=== PATIENT | female | born 1990 | race Caucasian/White ===

== ENCOUNTER 2022-10-09 10:16 | Outpatient (CLI) | payer BC, SELFPAY ==
--- NOTE | 2022-10-09 10:15 | RT.EKG_ITS ---
APPROVED REPORT Exam: Resting ECG Reason for Exam: chest discomfort Patient Location: O HR:68 bpm ECG Measurements Heart Rate 68 AXIS NV 134 P 72 QRSd 94 QRS 68 QT 379 T -13 QTc 404 Conclusion Sinus rhythm...normal P axis, V-rate 50- [address] abnormalities
== END 2022-10-09 10:17 | disposition home or self-care (01) ==
LOC: DI.CM 10:17
PROVIDERS: Visit Provider Nurse Practitioner Family
DX: R07.89 Other chest pain (principal)
CPT/HCPCS: 93010

== ENCOUNTER 2022-10-09 10:47 | Emergency (ER) | payer BC, SELFPAY ==
[2022-10-09] VITALS (12 sets, daily range): BP systolic 118–125; BP diastolic 80–96; PULSE 64–82; RESP 12–27; TEMP 36.3; O2SAT 96–100
--- NOTE | 2022-10-09 10:45 | RT.EKG_ITS ---
APPROVED REPORT Exam: Resting ECG Reason for Exam: chest pain Patient Location: E HR:73 bpm ECG Measurements Heart Rate 73 AXIS NH 146 P 69 QRSd 88 QRS 68 QT 371 T 1 QTc 410 Conclusion Sinus rhythm...normal P axis, V-rate 60- [address] dep laterally, V4-6
--- NOTE | 2022-10-09 11:23 | ED.GENADUL_ITS ---
Discharge Plan Disposition Patient Disposition: Home Condition: Stable Discharge Details Clinical Impression: Influenza A, Chest pain Primary Care Provider: None,None ED Provider: Lauren Hicks Home Meds and New Rx's Prescriptions: Continued Women's Daily Multivitamin 1 EACH tablet 1 ea PO DAILY cyanocobalamin (vitamin B-12) 2,500 MCG tablet 1,000 mcg PO DAILY Discharge Instructions Instructions: Chest Pain (ED), H1N1 Influenza (ED) Additional Instructions: Your imaging and labs are reassuring here today. Symptoms are likely due to your known fluid diagnosis. This can cause inflammation such as pleuritis like we discussed which can cause pain in your chest particularly when you are coughing or taking deep breaths. Please continue to encourage deep breathing. Please take the Tamiflu as prescribed. You may use Tylenol and/or ibuprofen as needed for discomfort or fevers. If you develop shortness of breath, difficulty breathing, increased pain or other new/worsening symptom please seek care urgently once again. Otherwise, please follow-up with primary care in 2 weeks for reevaluation. Referrals: Segundo Augustine [[facility] REGISTERED NURSE] - Discharge Data Discharge Date/Time-TO BE ENTERED AT DEPARTURE: 10/09/22 14:37 Medical Decision Making Patient is a pleasant 31-year-old female presenting today, sent over from urgent care, with chief complaint of chest discomfort. States the pain was primarily pleuritic in nature although she does have some exertional component. She denies feeling short of breath. She has had cough, congestion, runny nose. Cough is been dry. She was diagnosed with influenza today at the urgent care and started on Tamiflu. No recent travel. She is not on any control or estrogen supplementations. Finished her menses about 2 days ago. Global ECG reviewed by Dr. Mahmood, subtle ST depressional laterally. No previous for comparison. On exam, patient appears anxious but otherwise nontoxic. Hemodynamically stable. Lungs are clear. Normal cardiac exam. No change with movement. HEENT is significant for mild erythema in the posterior oropharynx. No lymphadenopathy. Patient denies any abdominal pain, nausea, vomiting, diarrhea. Has been hydrating but reports decreased appetite. She does have family history of 2 women in her family having CABG but states that she believes this is when they were older. With the discomfort and ST depression, I do feel that troponin would be appropriate. This has been going on for few days, if this is within normal limits, I do not see need for repeat. Patient is PERC and Wells negative. Prior to drawing blood, patient began crying and became very upset. She has significant anxiety around blood draws and will first give oral Ativan. FINDINGS: Single AP portable view. Heart size is upper normal.? The mediastinum is not widened. Lungs are clear.? No infiltrates nor obvious pleural effusions. IMPRESSION: No acute pulmonary findings on this single AP portable view of the chest. Labs reviewed. WBC slightly low, consistent with viral illness as patient flu +. CMP WNL. Troponin WNL. Discussed with patient. Advised pain is likely pleuritic in nature. Encouraged hydration. Encouraged supportive care. Advised f/u with PCP in the next 1-2 weeks for reevaluation. Strict return precautions discussed. All of her questions and concerns were addressed, she is in agreement with this plan. Sign Out No HPI General Date/Time Provider Initiated Documentation: 10/09/22 11:23 . Limitations to Documentation: no limitations . Information obtained by: patient and RN notes reviewed . History of Present Illness 31 year old F presents to the emergency department with the chief complaint of flu symptoms, chest discomfort, described as moderate, Quality is described as aching, and is localized to the chest. Patient reports no radiation. Patient started experiencing this day(s) and it has been constant (flu symptoms constant, chest discomfort associated with coughing, deep breathing). Immobilization improves symptom(s), Movement worsens symptoms (coughing) . Patient notes chest pain, cough, fever/chills and malaise; denies nausea/vomiting, rash and shortness of breath. Patient did receive the following treatments prior to arrival, none Related Data Home Medications Medication Instructions Recorded Confirmed cyanocobalamin (vitamin B-12) 1,000 mcg PO DAILY 11/09/15 10/09/22 2,500 mcg tablet aykrrpukfkla-Eg-euia-minerals 18 1 ea PO DAILY 11/09/15 10/09/22 mg-0.4 mg tablet (Women's Daily Multivitamin) Allergies Allergy/AdvReac Type Severity Reaction Status Date / Time No Known Allergies Allergy Unverified 10/09/22 10:53 General Stated Complaint: GenMedical ELVIA: 3 Review of Systems Constitutional Constitutional: Reports as per HPI and Denies headache(s) ENT Ears, Nose, Mouth, and Throat: Denies dizziness and Denies headache(s) Cardiovascular Cardiovascular: Reports as per HPI, Denies dyspnea and Denies dyspnea on exertion Respiratory Respiratory: Reports as per HPI, Denies dyspnea and Denies dyspnea on exertion Gastrointestinal Gastrointestinal: Reports as per HPI, Denies abdominal pain, Denies diarrhea, Denies nausea and Denies vomiting Musculoskeletal Musculoskeletal: Reports as per HPI and Denies back pain Integumentary/Breasts Skin/Breast: Reports as per HPI and Denies rash Neurologic Neurologic: Reports as per HPI, Denies dizziness and Denies headache(s) PFSH All Active Problems (Updated 10/09/22 @ 13:37 by DEMOND Roberts) Influenza A (Acute) Chest pain (Acute) Family History Mother Heart disease Father Pancreatitis Social History Smoking/Tobacco Use Status: Never Smoking risk assessment performed?: Yes Alcohol Intake: current Alcohol Intake frequency: a few times a week Drug use: Socially Substance use type: marijuana Do you feel safe at home: Yes Do you feel safe in your relationship?: Yes Exam Const General: cooperative, healthy appearing, comfortable, no acute distress, well developed and anxious Nutritional Appearance: average body habitus and well nourished Orientation: alert, awake and oriented x3 HENMT Head: normal to inspection Ears: hearing grossly normal bilaterally, external ears normal, TM's normal bilaterally, mastoids normal and no periauricular adenopathy Face and sinus: normal facial exam, sinuses nontender and face symmetric Mouth: oral mucosae normal, tongue normal, moist mucous membranes and no trismus Throat: posterior oropharynx normal, tonsils normal and uvula midline Neck Neck: normal visual inspection and no lymphadenopathy Chest Chest: normal inspection of the chest, normal palpation of entire chest wall and no crepitus Resp Effort & Inspection: normal respiratory effort, able to speak in complete sentences and no respiratory distress Auscultation: clear to auscultation bilaterally, no rales, no rhonchi and no wheezes Cardio Rate: regular rate Rhythm: regular rhythm Heart Sounds: S1 normal and S2 normal GI Inspection: normal to inspection, no edema and non-distended Palpation: soft, no hepatosplenomegaly, not firm, no guarding, not rigid and nontender Auscultation: normal bowel sounds Back/Spine/Pelvis Back: no CVA tenderness Thoracic/Lumbar Spine: thoracic and lumbar spine normal to inspection Skin General skin exam: no rashes or lesions noted Trauma: no lacerations or abrasions Neuro General: patient alert, patient awake and patient oriented x3 Cognition: normal cognition Speech: speech normal Gait: normal gait Extrem General: normal to inspection, capillary refill normal, no pedal edema, no calf tenderness and normal gait Psych Appearance: grossly normal and well kempt Mental Status: mental status grossly normal Speech and Movement: speech and movement normal Course Vital Signs Vital signs: Vital Signs Temperature 36.3 C L 10/09/22 10:50 Pulse 82 10/09/22 10:50 Respiratory Rate 20 10/09/22 10:50 Blood Pressure 122/96 H 10/09/22 10:50 Pulse Oximetry 100 10/09/22 10:50 Temperature 36.3 C L 10/09/22 10:50 Temperature Source Temporal Artery Scan 10/09/22 10:50 Pulse 82 10/09/22 10:50 Respiratory Rate 20 10/09/22 10:50 Respiratory Effort 10/09/22 10:54 Blood Pressure 122/96 H 10/09/22 10:50 Blood Pressure Position Sitting 10/09/22 10:50 Pulse Oximetry 100 10/09/22 10:50 Oxygen Delivery Method Room Air 10/09/22 10:50 Oxygen Flow Rate 0 10/09/22 10:50 PAWSS Have you Been Recently Intoxicated or Drunk Within the Last 30 days?: Yes Have you Ever Experienced Previous Episodes of Alcohol Withdrawal?: No Have you ever Experienced Withdrawal Seizures?: No Have you ever Experienced Delirium Tremens(DT)s?: No Have you ever undergone Alcohol Rehabilitation Treatment (i.e, inpt ot outpatient treatment programs)?: No Have you ever Experienced Blackouts?: No Have you ever Combined Alcohol with other Downers within the last 90 days?: No Have you ever Combined Alcohol with any other Substance of Abuse during the last 90 days?: No Positive Blood Alcohol level on Presentation? [PCS.BAL]: No Evidence of Increased Autonomic Activity (i.e. HR>120, tremor, sweating, agitation, nausea)?: No Result: 1
[2022-10-09] MEDS: LORazepam 1 MG TAB (11:37)
[2022-10-09] MEDS: Lactated Ringers 1,000 ML 1000 ML IV (12:00)
[2022-10-09 12:20] LABS: Abs Immature Grans 0.01 10^3/uL (0.0-0.06); Absolute Basophil Count 0.02 10^3/uL (0.0-0.2); Absolute Eosinophil Count 0.02 10^3/uL (0.0-0.7); Absolute Lymphocyte Count 1.21 10^3/uL (1.2-3.4); Absolute Monocyte Count 0.43 10^3/uL (0.1-0.8); Absolute Neutrophil Count 2.05 10^3/uL (1.2-6.7); Basophils % 0.5; Eosinophils % 0.5; HCT 37.5 % (36.0-46.0); HGB 12.6 g/dL (11.2-15.7); Immature Grans % 0.3; Lymphocytes % 32.4; MCH 30.8 pg (27.0-33.0); MCHC 33.6 % (32.0-36.0); MCV 92 fL (80-95); MPV 10.4 fL (8.0-11.0); Monocytes % 11.5; Neutrophils % 54.8; Platelet Count 220 10^3/uL (130-400); RBC 4.09 10^6/uL (3.93-5.22); RDW 11.6 % (11.7-14.6); RDW-SD 39.3 fL; WBC 3.74 10^3/uL (4.4-10.8)
[2022-10-09 12:40] LABS: ALT 26 U/L (14-59); AST 26 U/L (15-37); Albumin 4.1 g/dL (3.4-5.0); Alkaline Phosphatase 55 U/L (46-116); Anion Gap 7.5 mmol/L (3-11); BUN 7 mg/dL (7-18); Bilirubin, Total 0.2 mg/dL (0.2-1.0); CO2 29.5 mmol/L (21.0-32.0); CREATININE 0.7 mg/dL (0.55-1.02); Calcium 8.9 mg/dL (8.5-10.1); Chloride 102 mmol/L (98-107); Estimated GFR 117.04 (mL/min/1.73m2); Glucose 91 mg/dL (74-106); Potassium 4.2 mmol/L (3.5-5.1); Sodium 139 mmol/L (136-145); Total Protein 7.8 g/dL (6.4-8.2); Troponin I < 50 ng/L (<or=60)
--- NOTE | 2022-10-09 12:45 | DI.RAD_ITS ---
Exam(s) XR PORTABLE CHEST AP EXAM: XR PORTABLE CHEST AP CLINICAL HISTORY: CP. TECHNIQUE: 2D digital imaging was performed. COMPARISON: No exams were available for comparison FINDINGS: Single AP portable view. Heart size is upper normal. The mediastinum is not widened. Lungs are clear. No infiltrates nor obvious pleural effusions. IMPRESSION: No acute pulmonary findings on this single AP portable view of the chest. DATA REPOSITORY: RADIATION DOSE DELIVERED:
--- NOTE | 2022-10-09 13:53 | NUR.NOTE ---
Ambulated to bathroom. Denies chest pain or SOB.
== END 2022-10-09 14:37 | disposition home or self-care (01) ==
PROVIDERS: Emergency Provider Physician Assistant
DX: J10.1 Influenza due to other identified influenza virus with other respiratory manifestations (principal); D72.819 Decreased white blood cell count, unspecified
CPT/HCPCS: 80053; 81025; 93005; 96360; 99284; 71045; 83735; 84484; 85025; 93010

== ENCOUNTER 2023-08-10 16:31 | Outpatient (REF) | payer BC, SELFPAY ==
--- NOTE | 2023-08-10 16:00 | PAPFT_PTH ---
PATIENT: Viviana Cavanaugh LOC: PATRICIASamantha U#:[id number] AGE/SX: 32/F ROOM: RE08/10/[address]: Viviana Rich MD : [id number] BED: DIS: 08/10/2023 SPEC #: [id number] RECD: 08/10/23 18:04 STATUS: FELICITY REPatsy #: [id number] DENY: 08/10/23 16:[address]: Viviana Rich DEPT: [facility] Cytology RECD BY: Carmen Mcelroy Tissues: 1 - CX/ENDOCX FOR PAP SMEARS Procedures: PAP THIN PREP/UVM Screening HPV DNA PROBE Comments: [id number]
== END 2023-08-10 16:32 | disposition home or self-care (01) ==
LOC: LBN 16:31
PROVIDERS: Visit Provider Obstetrics & Gynecology
DX: Z12.4 Encounter for screening for malignant neoplasm of cervix (principal); Z11.51 Encounter for screening for human papillomavirus (HPV)
CPT/HCPCS: 88142; 87624

== ENCOUNTER 2024-03-04 05:41 | Outpatient (CLI) | payer BC, SELFPAY ==
[2024-03-04 08:07] LABS: Calculated LDL 96 mg/dL (<100); Cholesterol 182 mg/dL (<200); HDL Cholesterol 67 mg/dL (40-60); Triglyceride 98 mg/dL (<150)
[2024-03-04 09:05] LABS: Hemoglobin A1C 5.4 % (<5.7)
[2024-03-04 17:51] LABS: Estradiol 101 pg/mL (See Note)
[2024-03-04 18:35] LABS: FSH 4.5 mIU/mL (See Note)
[2024-03-05 20:12] LABS: Antimullerian Hormone 1.4 ng/mL (0.15-7.5)
== END 2024-03-04 05:42 | disposition home or self-care (01) ==
LOC: LBO 05:41
PROVIDERS: PCP Nurse Practitioner Family; Visit Provider Obstetrics & Gynecology
DX: Z31.9 Encounter for procreative management, unspecified (principal); N92.6 Irregular menstruation, unspecified; N97.9 Female infertility, unspecified; Z13.1 Encounter for screening for diabetes mellitus; Z13.220 Encounter for screening for lipoid disorders
CPT/HCPCS: 36415; 80061; 82670; 83001; 83036; 83520

== ENCOUNTER 2024-07-02 00:41 | Outpatient (CLI) | payer BC, SELFPAY ==
[2024-07-02] MEDS: Omnipaque 350 MG/ML 50 ML BTL IJ (11:31)
--- NOTE | 2024-07-02 12:03 | W.PROCNOTE ---
Date of service: 07/02/24 Time of Service: 10:30 Procedure Note Date of procedure: 07/02/24 Procedure: Hysterosalpingogram Surgeon/Proceduralist/Physician: Viviana Rich Procedure Diagnosis: infertility Procedure Indications: Pt and her partner have been trying to conceive for over a year. Labs and sono were normal earlier this spring. Her partner has not yet done a semenanalysis but is willing to. They are unlikely to pursue IVF but are curious if there are other in between options. Procedure Description: The patient arrived to diagnostic imaging for HSG for infertility. She is on day #10 of her cycle. The procedure was explained and consent was signed. She was positioned in the dorsal lithotomy position on the table. A time out was performed. The speculum was placed in the vagina to expose the cervix. The cervix was clensed with betadyne. A tenaculum was placed on the anterior lip of the cervix. There was difficulty with passing through the internal cervical os. The catheter was eventually inserted and the balloon inflated but when the fluro images were taken it did not appear to be in the endometrial cavity. The catheter was removed. With the use of an os finder and an endometrial biopsy pipelle the uterine cavity was entered and sounded to 7cm. The catheter was then inserted through the cervix into the uterine cavity. The balloon was inflated. The speculum was then removed. The contrast was then injected while the radiologist performed fluroscopy. The balloon was then deflated and the catheter was removed. The uterine cavity appeared normal and both tubes appeared patent with positive spill noted bilaterally.
== END 2024-07-02 01:01 ==
LOC: DI 00:41
PROVIDERS: PCP Nurse Practitioner Family; Visit Provider Obstetrics & Gynecology
DX: Z31.83 Encounter for assisted reproductive fertility procedure cycle (principal)
CPT/HCPCS: 58340; 76000; Q9967

== ENCOUNTER 2025-10-23 05:53 | Emergency (ER) | payer BC, SELFPAY ==
[2025-10-23 06:00] VITALS: BP 137/80; PULSE 71; RESP 16; TEMP 36.6; O2SAT 100
[2025-10-23] MEDS: Normal Saline 1,000 ML 1000 ML IV (06:22)
[2025-10-23 06:30] LABS: Abs Immature Grans 0.03 10^3/uL (0.0-0.06); HCT 35.6 % (36.0-46.0); HGB 11.8 g/dL (11.2-15.7); Immature Grans % 0.3 %; MCH 30.3 pg (27.0-33.0); MCHC 33.1 % (32.0-36.0); MCV 91 fL (80-95); MPV 9.8 fL (8.0-11.0); Platelet Count 285 10^3/uL (130-400); RBC 3.90 10^6/uL (3.93-5.22); RDW 11.9 % (11.7-14.6); RDW-SD 39.6 fL; WBC 8.86 10^3/uL (4.4-10.8)
[2025-10-23 06:52] LABS: ALT 18 U/L (10-49); AST 19 U/L (<34); Albumin 4.4 g/dL (3.2-5.0); Alkaline Phosphatase 50 U/L (46-116); Anion Gap 6.8 mmol/L (3-11); BUN 11 mg/dL (9-23); Bilirubin, Total 0.2 mg/dL (0.2-1.2); CO2 27.2 mmol/L (20.0-31.0); Calcium 8.8 mg/dL (8.3-10.6); Chloride 109 mmol/L (98-107); Glucose 99 mg/dL (74-106); Potassium 3.8 mmol/L (3.5-5.1); Sodium 143 mmol/L (136-145); Total Protein 7.1 g/dL (5.7-8.2)
[2025-10-23 07:01] LABS: HCG Quant, Pregnancy 792 mIU/mL (1.5-4.2)
--- NOTE | 2025-10-23 07:07 | W.ED.GENAD ---
Discharge Plan Disposition Patient Disposition: Home Condition: Good Discharge Details Clinical Impression: Inevitable complete miscarriage without complication Primary Care Provider: Ollie Ritter ED Provider: Arsh Souza Home Meds and New Rx's Prescriptions: No Action folic acid 1 mg tablet 1 mg PO DAILY omega 4-ypx-iqk-fish oil [Fish Oil] 1,000 (120-180) mg capsule 1 cap PO DAILY Patient Comments: Pt takes 3000 mg PNV no.446-gtku-jessq acid 28 mg iron- 800 mcg tablet 1 tab PO DAILY Emergen-C 1,000 mg powder effervescent in packet 1 packet PO DAILY PRN mecobalamin (vitamin B12) 500 mcg tablet,chewable 500 mcg PO DAILY epinephrine 0.3 mg/0.3 mL auto-injector 0.3 mg IM ONCE Qty: 2 0RF Rx Instructions: as a single dose; may repeat once Discharge Instructions Instructions: Miscarriage (DC) Additional Instructions: At this time there is significant concern that you are having a miscarriage. Please take Tylenol as needed for pain or cramping. Drink plenty of fluids and stay well-hydrated. The bleeding will likely continue for the next 48 to 72 hours. If the bleeding continues to get heavier and does not decrease over time please return immediately for reassessment as this may represent potential retained components that need obstetrics intervention. Please follow-up closely with your obstetrics prosthetic makeup designer. If you notice any worsening of your symptoms, or any new symptoms such as vomiting, diarrhea, fever, chills, shortness of breath, chest pain, numbness, weakness, or fainting , please return immediately to the emergency department for reevaluation. Please follow up with your primary care provider as soon as possible for reassessment and reevaluation. As always, it was a pleasure participating in your medical care today. Stand Alone Forms: Portal Information Referrals: Viviana Rich MD [ [facility] STAFF PHYSICIAN, Obstetrics] Ollie Ritter, [employer] [Primary Care Provider, Medicine] HPI General Date/Time Provider Initiated Documentation: 10/23/25 05:57. HPI Narrative: This is a pleasant 34-year-old female who is a G1, P0 who recently had a positive test 6 weeks ago, who presents today for vaginal bleeding. Patient has history of trying for the last few years with her partner, they had not started IVF, however this was spontaneous. Things were going well, until last night at around midnight she began having some cramping and bleeding with some viscous discharge. This increased throughout the night and has been heavier today. Questionable clots versus mucus have come out. She denies any other complaints. No trauma, no IV drug use or cocaine use. No change in medications. Related Data Home Medications ?Medication ?Instructions ?Recorded ?Confirmed ascorbic acid 1,000 1 packet PO DAILY PRN 08/10/23 10/23/25 rx-pgeqokmzgvpg-incndxyq powder effervescent pack (Emergen-C) vitamins no.121-iron 28 1 tab PO DAILY 08/10/23 10/23/25 mg-folic acid 800 mcg tablet folic acid 1 mg tablet 1 mg PO DAILY 01/22/24 10/23/25 epinephrine 0.3 mg/0.3 mL 0.3 mg (0.3 mL) IM ONCE #2 ea 02/29/24 10/23/25 injection, auto-injector omega 4-cyq-iea-fish oil 1,000 mg 1 cap PO DAILY 04/08/25 10/23/25 (120 mg-180 mg) capsule (Fish Oil) mecobalamin (vitamin B12) 500 mcg 500 mcg PO DAILY 08/20/25 10/23/25 chewable tablet Previous Rx's ?Medication ?Instructions ?Recorded epinephrine 0.3 mg/0.3 mL 0.3 mg (0.3 mL) IM ONCE #2 ea 02/29/24 injection, auto-injector Allergies Allergy/AdvReac Type Severity Reaction Status Date / Time Latex, Natural Rubber Allergy hives Unverified 10/23/25 06:36 bees Allergy Severe Anaphylaxis Uncoded 10/23/25 06:36 hornet Allergy Severe Anaphylaxis Uncoded 10/23/25 06:36 wasps Allergy Severe Anaphylaxis Uncoded 10/23/25 06:36 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 3.ENT: Atraumatic external nose and ears. Moist MM. Neck: Symmetric, trachea midline, No thyromegaly. 4.CVS: +S1/S2, Peripheral pulses 2+ and equal in all extremities. Brisk capillary refill in all extremities. 5.RESP: Unlabored respiratory effort. Clear to auscultation bilaterally. No wheezes rales or rhonchi 6.GI: Soft, Nontender/Nondistended, No hepatosplenomegaly. No guarding or rebound. Vaginal exam was performed with female nurse Meme at bedside. Small amount of blood is present, cervix appears slightly opened, but it is also in a notably atypical position. No hemorrhage. 7.MSK: Normocephalic/Atraumatic, Extremities w/o deformity or ttp No cyanosis or clubbing, Normal movement of all extremities 8.Skin: Warm, Dry. No rashes or lesions. 9.Neuro: perforator loader II-XII grossly intact. Sensation grossly intact, no focal neurologic deficits. 10.Psych: (AAO) x3. Appropriate mood and affect Course Vital Signs Vital signs: Vital Signs Temperature 36.6 C 10/23/25 06:00 Pulse 71 10/23/25 06:00 Respiratory Rate 16 10/23/25 06:00 Blood Pressure 137/80 10/23/25 06:00 Pulse Oximetry 100 10/23/25 06:00 Temperature 36.6 C 10/23/25 06:00 Temperature Source Temporal Artery Scan 10/23/25 06:00 Pulse 71 10/23/25 06:00 Respiratory Rate 16 10/23/25 06:00 Blood Pressure 137/80 10/23/25 06:00 Blood Pressure Position Sitting 10/23/25 06:00 Pulse Oximetry 100 10/23/25 06:00 Oxygen Delivery Method Room Air 10/23/25 06:00 Oxygen Flow Rate 0 10/23/25 06:00 Pain Level 3 10/23/25 06:04 Lab/Test Results Lab/Test Results: Laboratory Tests Range/Units 10/23/25 06:17 WBC (4.4-10.8) 10^3/uL 8.86 RBC (3.93-5.22) 10^6/uL 3.90 L Hgb (11.2-15.7) g/dL 11.8 Hct (36.0-46.0) % 35.6 L MCV (80-95) fL 91 MCH (27.0-33.0) pg 30.3 MCHC (32.0-36.0) % 33.1 RDW (11.7-14.6) % 11.9 Plt Count (130-400) 10^3/uL 285 MPV (8.0-11.0) fL 9.8 Immature Gran % % 0.3 Neutrophils % % 58.3 Lymphocytes % % 29.5 Monocytes % % 7.2 Eosinophils % % 3.7 Basophils % % 1.0 Nucleated RBC % (0.0-0.3) % 0.0 Absolute Neutrophils (1.2-6.7) 10^3/uL 5.16 Absolute Lymphocytes (1.2-3.4) 10^3/uL 2.61 Absolute Monocytes (0.1-0.8) 10^3/uL 0.64 Absolute Eosinophils (0.0-0.7) 10^3/uL 0.33 Absolute Basophils (0.0-0.2) 10^3/uL 0.09 Sodium (136-145) mmol/L 143 Potassium (3.5-5.1) mmol/L 3.8 Chloride (98-107) mmol/L 109 H Carbon Dioxide (20.0-31.0) mmol/L 27.2 Anion Gap (3-11) mmol/L 6.8 BUN (9-23) mg/dL 11 Creatinine (0.55-1.02) mg/dL 0.81 Est GFR (CKD-EPI 2020) (mL/min/1.73m2) 79.60 Glucose (74-106) mg/dL 99 Calcium (8.3-10.6) mg/dL 8.8 Total Bilirubin (0.2-1.2) mg/dL 0.2 AST (<34) U/L 19 ALT (10-49) U/L 18 Alkaline Phosphatase (46-116) U/L 50 Total Protein (5.7-8.2) g/dL 7.1 Albumin (3.2-5.0) g/dL 4.4 HCG, Quant (1.5-4.2) mIU/mL 792 H Medical Decision Making This is a pleasant 34-year-old female who is a G1, P0 who recently had a positive test 6 weeks ago, who presents today for vaginal bleeding. Patient has history of trying for the last few years with her partner, they had not started IVF, however this was spontaneous. Things were going well, until last night at around midnight she began having some cramping and bleeding with some viscous discharge. This increased throughout the night and has been heavier today. Questionable clots versus mucus have come out. She denies any other complaints. No trauma, no IV drug use or cocaine use. No change in medications. Physical exam demonstrates a slightly open cervix, with a mild amount of bleeding. Limited bedside ultrasound was performed and the uterus is thickened, there does appear to be an intrauterine space, with a thickened endometrium, and a small amount of retained fluid or products of conception. Difficult to visualize embryo, and no heart rate is noted. Concern for inevitable versus partial miscarriage. Laboratory workup shows a stable hemoglobin at 11.8, electrolytes normal, hCG level is 792. Pending Rh test. At this time with a diagnosis of an inevitable or incomplete miscarriage, I do feel that the patient is stable for discharge. Will recommend close follow-up with OB, Tylenol as needed for pain fluids. I have extensively reviewed the treatment plan and discharge instructions with the patient and their family. I have addressed all patient concerns at this time. The patient and family was made aware of what symptoms to monitor for that would warrant a return to the emergency department. Discussed the plan with the patient and family, they demonstrate verbal understanding and agreement with our assessment and plan at this time. The documentation in this chart was dictated using [employer] dictation software. Please excuse any dictation errors. Patient is Rh+. No indication for RhoGAM PFSH All Active Problems (Updated 10/23/25 @ 07:13 by Arsh Souza DO) Inevitable complete miscarriage without complication (Acute) (Acute) Right shoulder pain (Acute) Acne (Acute) Infertility management (Acute) Insomnia (Acute) Medical History (Updated 10/23/25 @ 07:13 by Arsh Souza DO) Dysmenorrhea (11/09/15) Family History (Updated 10/15/23 @ 16:16 by Yanni Ugarte CMA) Mother Alcohol use disorder Substance use disorder Dementia Depression FH: mental illness Father Pancreatitis Alcohol use disorder Maternal Grandmother Heart disease Social History (Updated 08/20/25 @ 14:02 by Viviana Rich MD) Smoking/Tobacco Use Status: Former Tobacco Use Tobacco: How many years used: 18 Smokeless tobacco user: other Smoking risk assessment performed?: Yes Alcohol Intake: former Drug use: Daily Substance use type: marijuana Details: quit vaping and drinking when she found out she was 10/23/25 Caregiver/Support person: No Household members: spouse Housing: house Pets and animals: Yes Pets and animals: cat(s) and dog(s) Sexually active: Yes Do you think of yourself as: straight/heterosexual Current gender identity: female What is your relationship status?: How often do you talk on the phone with friends or family?: three or more times per week How often do you get together with friends or relatives?: twice per week How often do you attend adventist or anabaptism services?: 1-3 times per year Do you belong to any clubs or organized social groups?: no Panel score (0-1 are the most socially isolated patients): 2 Duration: < 15 minutes/day Frequency: 1-2 times per week Morenita/Sikhism: Non baptist Special morenita needs: No Seatbelt use: always Helmet use: Yes Helmet use: always Drive intox or ride w/intox equipment driver: No Do you feel safe at home: Yes Do you feel safe in your relationship?: Yes Female Reproductive History Menstrual Age of Menarche: 12 Duration of menses: 6-7 days control method: none History History 0 Para Hx # Term Pregnancies Multiple births Hx # Pregnancies Ectopic pregnancies AB induced Hx Number of Living Children AB spontaneous POCUS Exam (ED) Limited OB Exam DATE OF EXAM:: 10/23/25 TIME OF EXAM:: 07:11 PROVIDER THAT PERFORMED THE STUDY: Arsh Souza IS THIS A REPEAT EXAM DURING THIS ENCOUNTER: No Type of Exam: Pelvic OB Trans Abdominal REASON FOR EXAM: Vaginal Bleeding VISUALIZED STRUCTURES: Cervix, Gestational sac and Uterus PERTINENT FINDINGS/IMPRESSION: Free fluid; No cardiac activity and No poll Exam Complete.
== END 2025-10-23 07:15 | disposition home or self-care (01) ==
PROVIDERS: Emergency Provider Student in an Organized Health Care Education/Training Program; PCP Nurse Practitioner Family
DX: O03.4 Incomplete spontaneous abortion without complication (principal)
CPT/HCPCS: 99283; 99284; 36415; 76815; 80053; 86850; 86900; 86901; 96360; 84702; 85025

== ENCOUNTER 2025-10-28 11:01 | Outpatient (CLI) | payer BC, SELFPAY ==
[2025-10-28 12:00] LABS: HCG Quant, Pregnancy 104 mIU/mL (1.5-4.2)
== END 2025-10-28 11:02 | disposition home or self-care (01) ==
LOC: LBO 11:01
PROVIDERS: PCP Nurse Practitioner Family; Visit Provider Obstetrics & Gynecology
DX: O26.859 Spotting complicating pregnancy, unspecified trimester (principal)
CPT/HCPCS: 36415; 84702